=== PATIENT | female | born 1935 | race Caucasian/White ===

== ENCOUNTER 2017-05-02 09:51 | Outpatient (CLI) | payer MEDICARE ==
--- NOTE | 2017-05-02 15:35 | ULT ---
RENAL ULTRASOUND: HISTORY: Renal failure. FINDINGS: Real-time imaging of the right and left kidneys was performed. The right kidney measures 8.3 and the left kidney 9.7 cm in size. There is a 1.6 cm right renal cyst present. No signs of solid mass or obstruction. Mild cortical thinning is seen bilaterally. The bladder region appears unremarkable. IMPRESSION: A 1.6 cm right renal cyst. Mild cortical thinning of both kidneys without signs of obstruction or so lid mass. POS: AALIYAH
== END 2017-05-02 09:52 | disposition home or self-care (01) ==
LOC: ULT 09:51
PROVIDERS: ATTEND Internal Medicine Nephrology
DX: N18.3 Chronic kidney disease, stage 3 (moderate) (principal); N28.1 Cyst of kidney, acquired; N28.89 Other specified disorders of kidney and ureter
CPT/HCPCS: 76770

== ENCOUNTER 2018-05-08 09:30 | Outpatient (CLI) | payer MEDICARE ==
--- NOTE | 2018-05-08 10:37 | CT ---
CHEST CT WITH CONTRAST: HISTORY: Mass. COMPARISON: None. FINDINGS: There is no mediastinal mass, lymphadenopathy, or hematoma. Heart size is within normal limits. The re are coronary artery calcifications. No significant pericardial fluid. The thoracic and upper abd ominal aorta have a normal caliber. Minimal atherosclerotic change. Extrarenal pelvis is noted on the right. There is symmetric enhancement of the visualized renal cassandra ex. The visualized solid organs are unremarkable. Hypoattenuation of the liver is felt to be due to hepatic steatosis. There is a nonspecific periportal lymph node, measuring 1.8 x 1.5 cm. There is a calcified granuloma in the left lung apex. A second calcified granuloma is noted in the l eft upper lobe. Both these nodules measure approximately 6 mm. There are no suspicious nodules in t he left upper lobe or left lower lobe. An ill defined opacity in the right upper lobe, measuring 1 x 1.2 cm. No additional opacities or masses in the right lung. Patchy interstitial opacities through out the lung parenchyma are presumed to be due to chronic change. Trachea and central bronchi are pa tent. No significant pleural fluid or evidence of pneumothorax. Note is made of a small hiatal hernia with a significant amount of mesenteric fat extending through t he defect. IMPRESSION: 1. Calcified granulomas in the left upper lobe. 2. Ill defined opacity in the right upper lobe. The opacity may represent a focal area of infiltrat e. A malignant process cannot be completely excluded. Short-term follow-up imaging is recommended. 3. Small hiatal hernia with a significant amount of mesenteric fat extending through the defect. 4. Nonspecific periportal lymph node. POS: AALIYAH
== END 2018-05-08 09:31 | disposition home or self-care (01) ==
LOC: BICCT 09:30
PROVIDERS: ATTEND Family Medicine
DX: R91.8 Other nonspecific abnormal finding of lung field (principal); J84.10 Pulmonary fibrosis, unspecified; K44.9 Diaphragmatic hernia without obstruction or gangrene
CPT/HCPCS: 71260

== ENCOUNTER 2019-02-12 10:22 | Outpatient (CLI) | payer MEDICARE, MEDICAID ==
[~2019-02-12 10:22] MED LIST: Iopamidol 370 76% 100 ML VIAL ONE
--- NOTE | 2019-02-12 13:56 | CT ---
CT CHEST WITH CONTRAST: 02/12/19 INDICATION: Follow-up pulmonary nodule. Comparison made to chest CT of 05/08/18. FINDINGS: There is hazy ground glass opacities seen bilaterally. There is mild vascular engorgement and this ma y represent mild edema. No confluent consolidation. The oblong shaped nodular density in the right perihilar region located in right upper lobe is again seen. This has a similar appearance to 05/08/18 exam without evidence of significant interval change. The linear stranding in the left upper lobe with areas of nodular calcification appears stable. Mild atelectatic change in the posterior right lower lobe. Mediastinum unremarkable. The sliding diaphragmatic hernia again noted. IMPRESSION: 1. [place] shaped nodular density in the right upper lobe perihilar region is again seen. This junior s not significantly changed from 05/08/18. This measures approximately k9 to 10 mm in the coronal denis ne. Recommend continued follow-up with repeat noncontrast CT chest in six months. 2. There is cardiomegaly, mild vascular engorgement. Diffuse ground glass opacity bilaterally ma y represent mild edema. 3. Stranding and calcification in the left upper lobe are stable. Diaphragmatic hernia again not ed as described previously. Mild atelectasis in the posterior right lung base is seen. POS: [facility]
== END 2019-02-12 10:23 | disposition home or self-care (01) ==
LOC: CT 10:22
PROVIDERS: ATTEND Family Medicine
DX: R91.8 Other nonspecific abnormal finding of lung field (principal); I51.7 Cardiomegaly; K44.9 Diaphragmatic hernia without obstruction or gangrene; J98.11 Atelectasis
CPT/HCPCS: 71260; 82565; Q9967

== ENCOUNTER 2020-05-11 23:21 | Inpatient (IN) | payer MEDICARE, MEDICAID ==
[~2020-05-11 23:21] MED LIST changes: -Iopamidol 370 76% 100 ML VIAL ONE; +Iopamidol-370 76% 500 ML 1 ML ONE
[2020-05-11] MEDS ORDERED: Ondansetron PF 4 MG/2 ML Vial ONE (23:56)
[2020-05-11] MEDS ORDERED: Morphine 4 MG/ML VIAL ONE (23:56)
[2020-05-12 00:02] LABS: Mean Corpuscular HGB CONC 30.4 g/dL (32.0-36.0); Mean Corpuscular Hemoglobin 22.6 pg (27.0-31.0); Mean Corpuscular Volume 74.1 fL (78.0-98.0); Mean Platelet Volume 7.2 fL (7.4-10.4); Platelet Count 392 thou/uL (130-400); RBC Distribution Width 15.1 % (11.5-14.5); Red Blood Cell (RBC) Count 3.56 mill/uL (4.20-5.40); White Blood Cell (WBC) Count 15.7 thou/uL (4.8-10.8)
[2020-05-12 00:14] LABS: ALT (SGPT) 16 U/L (8-55); AST (SGOT) 40 U/L (5-34); Albumin 3.5 g/dL (3.4-4.8); Alkaline Phosphatase 96 U/L (40-110); Anion Gap 16 mmol/L (10-20); BUN (Urea Nitrogen) 25 mg/dL (9.8-20.1); Bilirubin, Total 0.2 mg/dL (0.2-1.2); Calc. Creatinine Clearance 0 mL/min (70-130); Calcium 9.1 mg/dL (7.8-10.44); Carbon Dioxide 22 mmol/L (23-31); Chloride 101 mmol/L (98-107); Estimated GFR-MDRD 41; Globulin 3.6 g/dL (2.4-3.5); Glucose 116 mg/dL (83-110); Lipase 10 U/L (8-78); Potassium 5.2 mmol/L (3.5-5.1); Protein, Total 7.1 g/dL (6.0-8.3); Sodium 134 mmol/L (136-145)
[2020-05-12 00:20] LABS: #Basophils 0.1 thou/uL (0.0-0.2); #Eosinphils 1.1 thou/uL (0.0-0.7); #Monocytes 1.1 thou/uL (0.11-0.59); #Neutrophils 8.4 thou/uL (1.40-6.50); %Basophils 0.8 % (0.0-1.0); %Eosinophils 7.1 % (0.0-10.0); %Lymphocytes 31.8 % (21.0-51.0); %Neutrophils 53.3 % (42.0-75.0); Hypochromia SLIGHT = 6-15 cells (100X) (0-5/hpf); MDiff Complete? YES; Microcytosis SLIGHT = 6-15 cells (100X) (0-5/hpf)
[2020-05-12 00:53] LABS: Bacteria/HPF 4+ HPF (None Seen); Bilirubin Negative (Negative); Blood, Urine 1+ (Negative); Clarity Turbid (Clear); Glucose, Urine (Dipstick) Normal (Negative); Ketone, Urine Negative (Negative); Leukocyte 500 Leu/uL (Negative); Nitrite Negative (Negative); Protein, Urine (Dipstick) Negative (Neg-Trace); Specific Gravity, Urine 1.006 (1.002-1.036); Squamous Epithelial 0-3 HPF (0-3); Urobilinogen Normal mg/dL (Less than 2); WBC/HPF Greater than 50 HPF (0-3); pH, Urine 5.5 (5.0-9.0)
[2020-05-12] MEDS ORDERED: Calcium Carbonate 500 MG ChewTAB PO PRN (01:40)
[2020-05-12] MEDS ORDERED: Acetaminophen 650 MG Suppository PR PRN (01:40)
[2020-05-12] MEDS ORDERED: Ondansetron PF 4 MG/2 ML Vial IVP PRN (01:40)
[2020-05-12] MEDS ORDERED: Ondansetron ODT 4 MG TAB PO PRN (01:40)
[2020-05-12] MEDS ORDERED: HYDROcodone/Acetaminophen 5/325 mg Tablet PO PRN (01:40)
--- NOTE | 2020-05-12 01:45 | PDOC.HHP ---
Hospitalist HPI - History of Present Illness slur speech / confusion History of Present Illness: Case of an 84-year-old female with a past medical history of hypertension hyperlipidemia, ckd, dementia and insulin-dependent diabetes presenting from [facility] due to slur speech and altered mental state. history was obtain from daughter who was in room. apparently patient was on her usual state of health until today when daughter called her mother at the [facility]-way. she states patient was confused and not making any sense for which she called the [facility] to go and evaluated the patient. patient was found confused and according to [facility]-way personal patient was having slur speech was confused and combative for which she was brought to hospital for evaluation. here slur speech had improved but patient continued to be confuse. at ed patient was diagnosed with sepsis secondary to uti and hospitalist was called for further evaluation and management. Hospitalist ROS - Review of Systems ROS unobtainable: due to mental status All other systems reviewed; all pertinent +/- noted in HPI/Subj Hospitalist History - Past Surgical History Other Surgical History: carpel tunnel - Family History Family History: reports: no pertinent history - Social History Smoking Status: Never smoker Alcohol: reports: None Drugs: reports: none Living Situation: [facility] - Exam General Appearance: NAD, ill appearing Eye: PERRL, anicteric sclera ENT: normocephalic atraumatic, no oropharyngeal lesions, moist mucosa Neck: supple, symmetric, no JVD, no thyromegaly Heart: RRR, no murmur, no gallops, no rubs Respiratory: CTAB, no wheezes, no rales, no ronchi Gastrointestinal: soft, non-distended, normal bowel sounds, tender to palpation Gastrointestinal - other findings: supra pubic Extremities: no cyanosis, no clubbing, no edema Skin: normal turgor, no lesions, no rashes Neurological: cranial nerve grossly intact, no weakness, no focal deficits, no new deficit Musculoskeletal: normal tone, no muscle wasting Psychiatric: not oriented Hospitalist Results - Labs Result Diagrams: 05/11/20 23:36 05/11/20 23:36 Lab results: WBC 15.7 thou/uL (4.8-10.8) H 05/11/20 23:36 Hgb 8.0 g/dL (12.0-16.0) L 05/11/20 23:36 Hct 26.4 % (36.0-47.0) L 05/11/20 23:36 MCV 74.1 fL (78.0-98.0) L 05/11/20 23:36 Plt Count 392 thou/uL (130-400) 05/11/20 23:36 Neutrophils % 53.3 % (42.0-75.0) 05/11/20 23:36 Sodium 134 mmol/L (136-145) L 05/11/20 23:36 Potassium 5.2 mmol/L (3.5-5.1) H 05/11/20 23:36 Chloride 101 mmol/L (98-107) 05/11/20 23:36 Carbon Dioxide 22 mmol/L (23-31) L 05/11/20 23:36 BUN 25 mg/dL (9.8-20.1) H 05/11/20 23:36 Creatinine 1.24 mg/dL (0.6-1.1) H 05/11/20 23:36 Glucose 116 mg/dL (83-110) H 05/11/20 23:36 Lactic Acid 1.6 mmol/L (0.5-2.2) 05/11/20 23:36 Calcium 9.1 mg/dL (7.8-10.44) 05/11/20 23:36 Total Bilirubin 0.2 mg/dL (0.2-1.2) 05/11/20 23:36 AST 40 U/L (5-34) H 05/11/20 23:36 ALT 16 U/L (8-55) 05/11/20 23:36 Alkaline Phosphatase 96 U/L (40-110) 05/11/20 23:36 Troponin I Less than 0.010 ng/mL (< 0.028) 05/11/20 23:36 Serum Total Protein 7.1 g/dL (6.0-8.3) 05/11/20 23:36 Albumin 3.5 g/dL (3.4-4.8) 05/11/20 23:36 Lipase 10 U/L (8-78) 05/11/20 23:36 Urine Ketones Negative mg/dL (Negative) 05/12/20 00:04 Urine Blood 1+ (Negative) A 05/12/20 00:04 Urine Nitrite Negative (Negative) 05/12/20 00:04 Ur Leukocyte Esterase 500 Car/uL (Negative) A 05/12/20 00:04 Urine RBC 4-6 HPF (0-3) A 05/12/20 00:04 Urine WBC Greater than 50 HPF (0-3) A 05/12/20 00:04 Ur Squamous Epith Cells 0-3 HPF (0-3) 05/12/20 00:04 Urine Bacteria 4+ HPF (None Seen) A 05/12/20 00:04 Hospitalist H&P A/P - Problem (1) Sepsis Code(s): A41.9 - SEPSIS, UNSPECIFIED ORGANISM Status: Acute (2) UTI (urinary tract infection) Status: Acute (3) TIA (transient ischemic attack) Code(s): G45.9 - TRANSIENT CEREBRAL ISCHEMIC ATTACK, UNSPECIFIED Status: Acute (4) Diabetes Code(s): E11.9 - TYPE 2 DIABETES MELLITUS WITHOUT COMPLICATIONS Status: Acute (5) HLD (hyperlipidemia) Code(s): E78.5 - HYPERLIPIDEMIA, UNSPECIFIED Status: Acute (6) HTN (hypertension) Code(s): I10 - ESSENTIAL (PRIMARY) HYPERTENSION Status: Acute (7) CKD (chronic kidney disease) stage 3, GFR 30-59 ml/min Code(s): N18.30 - CHRONIC KIDNEY DISEASE, STAGE 3 UNSPECIFIED Status: Acute - Plan Plan: 84y/o female with the stated pmhx who presents with slur speech and confusion noted to be in sepsis secondary to uti sepsis secondary to uti - elevated wbc + confusion with u/a consistent with uti - started on levaquin - f/u blood and urine cultures - ivfs - hx of recurrent utis tia - episode of slur speech now resolved - head ct negative - asa + statin for secondary prevention - 2echo - carotid doppler - head mri - neurology consult - permissive hypertension dm -acc+ss hld - on statin htn - holding medication for permissive htn and in the setting of sepsis
[2020-05-12] MEDS ORDERED: Dextrose 5% in Water 1,000 ML IV PRN (02:16)
[2020-05-12] MEDS ORDERED: Dextrose 50% Abboject 50 ML SYRINGE SLOW IVP PRN (02:16)
[2020-05-12] MEDS: Sodium Chloride 0.9% 1,000 ML IV SCH (04:45)
--- NOTE | 2020-05-12 07:59 | CT ---
PRELIMINARY REPORT/[facility]/EMERGENCY AFTER HOURS PROCEDURE EXAM: CT Abdomen and Pelvis with Intravenous Contrast CLINICAL HISTORY: LLQ & LUQ PAIN TECHNIQUE: Axial computed tomography images of the abdomen and pelvis with intravenous contrast. Coronal and sa gittal reformatted images are provided. CONTRAST: With; 60ML ISOVUE 370 intravenous. No oral contrast. COMPARISON: None provided. FINDINGS: LUNG BASES: No basilar airspace consolidation or pleural effusion. LIVER: Unremarkable. GALLBLADDER AND BILE DUCTS: Unremarkable. No calcified stone. No ductal dilation. PANCREAS: Unremarkable. SPLEEN: Unremarkable. ADRENAL GLANDS: Unremarkable. KIDNEYS, URETERS, AND BLADDER: Bilateral renal cortical thinning. No hydronephrosis or nephrolithiasis. No ureteral or bladder calc dawson. STOMACH AND BOWEL: No obstruction. No wall thickening. No CT evidence of colitis or acute diverticulitis. APPENDIX: The appendix is not identified and may be surgically absent. No inflammatory changes around the cecu m. PERITONEUM: No free fluid. No free air. No abscess. LYMPH NODES: Prominent portal caval lymph nodes. No pathologic adenopathy. REPRODUCTIVE: Status post hysterectomy. No pelvic mass or free fluid. VASCULATURE: No aortic aneurysm. BONES: Fixation hardware within the right proximal femur. No evidence of hardware complication. There are multilevel degenerative changes of the lumbar spine. No acute fractures or worrisome osseous lesions. ABDOMINAL WALL AND SOFT TISSUES: Unremarkable. IMPRESSION: No acute intra-abdominal or pelvic abnormality. ELECTRONICALLY SIGNED BY: Avery Prater M.D. May 12, 2020 1:16:36 AM SENIOR PHYSICIAN This report is intended for review by the ordering physician only, in accordance of law. If you recei ve this report in error, please call [facility] at [phone]. FINAL REPORT Emergent after hours CT abdomen and pelvis with IV contrast HISTORY: Left upper quadrant and left lower quadrant abdominal pain. COMPARISON: CT thorax on 02/12/2019 IMPRESSION: 1. Dilatation of the common duct which measures 13 mm. There is no significant intrahepatic biliary d uctal dilatation present. Etiology for dilatation of the common duct is uncertain based on this exam. 2. No acute findings are seen in the abdomen and pelvis. 3. Colonic diverticulosis. 4. Vascular calcifications in the abdominal aorta and iliac arteries. 5. Incidental note is made of a circumaortic left renal vein. 6. Diaphragmatic hernia primarily composed of fat is again seen and stable compared to prior CT thora x. 7. Mild bibasilar groundglass densities which may be related to volume loss. 8. Postoperative changes right hip. 9. Suggestion of mild renal cortical thinning. 10. Mild dilatation of the common duct was not mentioned on preliminary report. This is a nonspecific finding, but MRCP versus ERCP may be helpful for further evaluation. This finding was discussed with Babatunde nurse in the hospital floor on 05/12/2020 at 1515 hours. Transcribed Date/Time: 05/12/2020 8:47 AM
--- NOTE | 2020-05-12 08:55 | CT ---
PRELIMINARY REPORT/[facility]/EMERGENCY AFTER HOURS PROCEDURE: EXAM: CT Head Without Intravenous Contrast. CLINICAL HISTORY: Patient is an 84-year-old female with a past medical history of hypertension hyperl ipidemia and insulin-dependent diabetes presenting from group home for decreased alertness which be [place] roughly around 1900 hrs. Per EMS the patient was briefly slurring her speech however now has retu rned to baseline and smells of turbid urine. TECHNIQUE: Axial computed tomography images of the head/brain without intravenous contrast. COMPARISON: None provided. FINDINGS: BRAIN: No acute intraparenchymal hemorrhage. No mass lesion. No CT evidence for acute territorial infarct. N o midline shift or extra-axial collection. Encephalomalacia involving the right occipital lobe. Patchy white matter hypodensities in the centru m semiovale and marcano radiata consistent with chronic microvascular ischemic changes. There is diff use cerebral atrophy. VENTRICLES: No hydrocephalus. ORBITS: The orbits are unremarkable. SINUSES AND MASTOIDS: The paranasal sinuses and mastoid air cells are clear. SOFT TISSUES: No significant facial or scalp soft tissue swelling evident. No radiopaque foreign body is seen. BONES: No acute skull fracture. IMPRESSION: 1. No acute intracranial abnormality. 2. Old right occipital infarct. 3. Chronic microvascular ischemic changes. ELECTRONICALLY SIGNED BY: Avery Prater M.D. May 12, 2020 1:05:34 AM CARPET LAYER HELPER This report is intended for review by the ordering physician only, in accordance of law. If you recei ve this report in error, please call [facility] at [phone]. FINAL REPORT CT BRAIN WITHOUT CONTRAST: I agree with the preliminary report given by Dr. Avery Prater of [facility]. POS: OFF
[2020-05-12 09:11] LABS: SARS-CoV-2 MS2 Positive; SARS-CoV-2 N Gene Negative; SARS-CoV-2 S Gene Negative; SARS-CoV-2 by NAA Not Detected (NotDetected); SARS-CoV-2 orf1ab Negative
--- NOTE | 2020-05-12 09:19 | ULT ---
ULTRASOUND DOPPLER DUPLEX CAROTID: DATE: 05/12/2020 HISTORY: 84 year old female with TIA TECHNIQUE: Grayscale, color-flow, and spectral analysis, of major arteries of neck. FINDINGS: RIGHT: Atherosclerotic plaque:Mild to moderate at common carotid and internal carotid arteries. Peak systolic and end diastolic velocities: CCA:80 cm/s, 15 cm/s ICA:80 cm/s, 15 cm/s ICA/CCA ratio:1.0 Vertebral artery flow:Antegrade LEFT: Atherosclerotic plaque:Mild to moderate at common carotid and internal carotid arteries. Peak systolic and end diastolic velocities: CCA:110 cm/s, 20 cm/s ICA:85 cm/s, 20 cm/s ICA/CCA ratio:0.8 Vertebral artery flow:Antegrade IMPRESSION: 1) mild to moderate atherosclerosis of bilateral carotid arteries. 2) no evidence of hemodynamically significant stenosis by velocities.
[2020-05-12 09:42] LABS: Hemoglobin 7.9 g/dL (12.0-16.0); Mean Corpuscular HGB CONC 30.3 g/dL (32.0-36.0); Mean Corpuscular Hemoglobin 22.5 pg (27.0-31.0); Mean Corpuscular Volume 74.3 fL (78.0-98.0); Mean Platelet Volume 7.1 fL (7.4-10.4); Platelet Count 413 thou/uL (130-400); RBC Distribution Width 15.1 % (11.5-14.5); Red Blood Cell (RBC) Count 3.51 mill/uL (4.20-5.40); White Blood Cell (WBC) Count 12.1 thou/uL (4.8-10.8)
[2020-05-12 10:00] LABS: ALT (SGPT) 15 U/L (8-55); AST (SGOT) 39 U/L (5-34); Albumin 3.5 g/dL (3.4-4.8); Alkaline Phosphatase 83 U/L (40-110); Anion Gap 14 mmol/L (10-20); BUN (Urea Nitrogen) 22 mg/dL (9.8-20.1); Bilirubin, Total 0.3 mg/dL (0.2-1.2); Calc. Creatinine Clearance 46 mL/min (70-130); Calcium 9.3 mg/dL (7.8-10.44); Carbon Dioxide 27 mmol/L (23-31); Cardiac Risk 4.6 (Less than 4.5); Chloride 103 mmol/L (98-107); Cholesterol 190 mg/dl (< 200 Desired); Estimated GFR-MDRD 41; Globulin 3.5 g/dL (2.4-3.5); Glucose 91 mg/dL (83-110); HDL Cholesterol 41 mg/dL (>60 Neg Risk); LDL Cholesterol, Calculated 82 mg/dL; Potassium 5.3 mmol/L (3.5-5.1); Sodium 139 mmol/L (136-145); Triglycerides 336 mg/dL (Less than 150)
[2020-05-12 10:02] LABS: Band 4 % (5-11); Eosinophils 7 % (0-10); Hypochromia SLIGHT = 6-15 cells (100X) (0-5/hpf); Lymphocytes 24 % (21-51); MDiff Complete? YES; Microcytosis SLIGHT = 6-15 cells (100X) (0-5/hpf); Monocytes 6 % (0-10); Neutrophil 57 % (42-75); Platelet Morphology Comment Appears Increased; Polychromasia SLIGHT = 2-3 cells (100X) (0-2/hpf)
--- NOTE | 2020-05-12 10:28 | MRI ---
MRI BRAIN WITHOUT CONTRAST: Date: 05/12/2020 INDICATION: TIA. Correlation made to CT head 05/12/2020. FINDINGS: Moderate cortical atrophy. Moderate to severe chronic ischemic white matter change. Evidence of an ol d right occipital lobe infarct as noted on CT. No evidence of restricted diffusion. Linear height sig nal on diffusion-weighted sequences in the right occipital lobe is consistent with T2 shine-through a s noted on the ADC map. No evidence of acute infarct. No evidence of hemorrhage. Intracranial internal carotid arteries, basilar artery, and cerebral arteries demonstrate expected fl ow-voids. IMPRESSION: 1. Cortical Atrophy and moderate chronic ischemic white matter changes. Evidence of old right occipi skyla lobe infarct. 2. No evidence of acute infarct. POS: AH
--- NOTE | 2020-05-12 12:53 | CON ---
NEUROLOGY CONSULTATION DATE OF CONSULTATION: 05/12/2020 REASON FOR CONSULTATION: Altered mental status/confusion/slurred speech. HISTORY OF PRESENT ILLNESS: Ms. Breana Colvin is an 84-year-old female with medical history significant for hypertension, hyperlipidemia, chronic kidney disease, dementia, and insulin-dependent diabetes mellitus, [facility] because of an episode of slurred speech with altered mental status. History is obtained from the daughter who is at bedside. Per daughter, she was in her usual health until yesterday when her daughter called her mother at the [facility] and she seems to be confused and keeps on repeating the same sentence. The daughter later called the nursing station, and they decided to bring her to the emergency room for further evaluation. In the emergency room, she was found to be confused with slurred speech, which subsequently improved. In the emergency room, she was diagnosed with sepsis secondary to UTI and admitted for further evaluation. She also has an episode, during which she was slumped on the side of the bed and there was a concern about seizures. Neurology was consulted for further evaluation. There is no prior history of seizures or head injury. REVIEW OF SYSTEMS: Unobtainable due to the patient's mental status. PAST SURGICAL HISTORY: Carpal tunnel surgery. PAST MEDICAL HISTORY: Hypertension, hyperlipidemia, chronic kidney disease, dementia, insulin-dependent diabetes mellitus. FAMILY HISTORY: No significant family history. SOCIAL HISTORY: The patient lives in a [facility]. Denies smoking, alcohol, or illegal drug use. ALLERGIES: Penicillin PHYSICAL EXAMINATION: 124/71 66 18 General Appearance: NAD, ill appearing Eye: PERRL, anicteric sclera ENT: normocephalic atraumatic, no oropharyngeal lesions, moist mucosa Neck: supple, symmetric, no JVD, no thyromegaly Heart: RRR, no murmur, no gallops, no rubs Respiratory: CTAB, no wheezes, no rales, no ronchi Gastrointestinal: soft, non-distended, normal bowel sounds, tender to palpation Gastrointestinal - other findings: supra pubic Extremities: no cyanosis, no clubbing, no edema Skin: normal turgor, no lesions, no rashes Neurological: Mental status; the patient is alert and oriented to person, place, and time. Recent and remote memory, clear. Speech is clear. Motor; muscle tone and bulk are normal. Strength 5/5 bilaterally. Sensory intact. Cerebellar, finger-nose testing intact. Cranial nerves 2 through 12 intact. Gait deferred due to the patient's safety reason. LABORATORY AND DIAGNOSTIC DATA: Data reviewed. I reviewed the labs, which are significant for anemia, hemoglobin 8 and hematocrit 26.4 and leukocytosis with white count of 15.7. Hyponatremia with a sodium 134, hyperkalemia of 5.2, BUN 25, creatinine 1.24, and glucose is slightly high 116. WBC 15.7 thou/uL (4.8-10.8) H 05/11/20 23:36 Hgb 8.0 g/dL (12.0-16.0) L 05/11/20 23:36 Hct 26.4 % (36.0-47.0) L 05/11/20 23:36 MCV 74.1 fL (78.0-98.0) L 05/11/20 23:36 Plt Count 392 thou/uL (130-400) 05/11/20 23:36 Neutrophils % 53.3 % (42.0-75.0) 05/11/20 23:36 Sodium 134 mmol/L (136-145) L 05/11/20 23:36 Potassium 5.2 mmol/L (3.5-5.1) H 05/11/20 23:36 Chloride 101 mmol/L (98-107) 05/11/20 23:36 Carbon Dioxide 22 mmol/L (23-31) L 05/11/20 23:36 BUN 25 mg/dL (9.8-20.1) H 05/11/20 23:36 Creatinine 1.24 mg/dL (0.6-1.1) H 05/11/20 23:36 Glucose 116 mg/dL (83-110) H 05/11/20 23:36 Lactic Acid 1.6 mmol/L (0.5-2.2) 05/11/20 23:36 Calcium 9.1 mg/dL (7.8-10.44) 05/11/20 23:36 Total Bilirubin 0.2 mg/dL (0.2-1.2) 05/11/20 23:36 AST 40 U/L (5-34) H 05/11/20 23:36 ALT 16 U/L (8-55) 05/11/20 23:36 Alkaline Phosphatase 96 U/L (40-110) 05/11/20 23:36 Troponin I Less than 0.010 ng/mL (< 0.028) 05/11/20 23:36 Serum Total Protein 7.1 g/dL (6.0-8.3) 05/11/20 23:36 Albumin 3.5 g/dL (3.4-4.8) 05/11/20 23:36 Lipase 10 U/L (8-78) 05/11/20 23:36 Urine Ketones Negative mg/dL (Negative) 05/12/20 00:04 Urine Blood 1+ (Negative) A 05/12/20 00:04 Urine Nitrite Negative (Negative) 05/12/20 00:04 Ur Leukocyte Esterase 500 Car/uL (Negative) A 05/12/20 00:04 Urine RBC 4-6 HPF (0-3) A 05/12/20 00:04 Urine WBC Greater than 50 HPF (0-3) A 05/12/20 00:04 Ur Squamous Epith Cells 0-3 HPF (0-3) 05/12/20 00:04 Urine Bacteria 4+ HPF (None Seen) A 05/12/20 00:04 ASSESSMENT AND PLAN: (1) Sepsis Code(s): A41.9 - SEPSIS, UNSPECIFIED ORGANISM Status: Acute (2) UTI (urinary tract infection) Status: Acute (3) TIA (transient ischemic attack) Code(s): G45.9 - TRANSIENT CEREBRAL ISCHEMIC ATTACK, UNSPECIFIED Status: Acute (4) Diabetes Code(s): E11.9 - TYPE 2 DIABETES MELLITUS WITHOUT COMPLICATIONS Status: Acute (5) HLD (hyperlipidemia) Code(s): E78.5 - HYPERLIPIDEMIA, UNSPECIFIED Status: Acute (6) HTN (hypertension) Code(s): I10 - ESSENTIAL (PRIMARY) HYPERTENSION Status: Acute (7) CKD (chronic kidney disease) stage 3, GFR 30-59 ml/min Code(s): N18.30 - CHRONIC KIDNEY DISEASE, STAGE 3 UNSPECIFIED Status: Acute Ms. Breana Colvin is an 84-year-old female, presented with altered mental status, slurred speech in the setting of metabolic encephalopathy and urinary tract infection. There is also concern about transient ischemic attack and seizure-like episode. MRI of the brain reviewed, which was negative for acute intracranial pathology and did show old stroke and chronic small vessel disease. Carotid Doppler did not reveal hemodynamically significant stenosis. 2D echo pending. Continue aspirin and high-intensity statin for secondary stroke prevention. Neuro checks every 4 hours. Strict control of blood pressure and blood glucose. EEG to rule outcortical irritability. Continue telemetry. Continue home medications. Continue medical management per primary team, PT/OT/speech. We will continue to follow. Plan discussed in detail with the patient and the daughter at bedside. We will continue to follow. Thank you for the consult. Job ID: [id number] MARY
[2020-05-12] MEDS: Aspirin 325 mg Enteric Coated Tablet PO SCH (15:49)
[2020-05-12] MEDS: Enoxaparin Sodium 40 MG/0.4 ML SYRINGE SC SCH (15:49)
--- NOTE | 2020-05-12 16:12 | PDOC.EEG ---
Neurology EEG Report - Report Report: This EEG was performed using 24 channel [employer] video digital EEG machine with 24 disc electrodes. This was an extended 2 hours 7 minutes of EEG recording. Digital analysis of the EEG was done for Rickey and seizure detection which revealed no abnormalities. Background: The posterior background rhythm was not observed. Photic stimulation: No response seen with photic stimulation. Hyperventilation: Not performed. Sleep: No stage change was observed. EEG diagnosis: Intermittent irregular theta activity seen throughout the recording. Absence of posterior background rhythm. Clinical interpretation: This EEG is consistent with mild to moderate generalized nonspecific cerebral dysfunction.
[2020-05-12] MEDS: Acetaminophen 325 MG TAB PO PRN (18:18)
[2020-05-12] MEDS: Atorvastatin Calcium 40 MG TAB PO SCH (19:53)
[2020-05-13] MEDS: Sodium Chloride 0.9% 1,000 ML IV SCH ×2 (02:08→21:10)
--- NOTE | 2020-05-13 07:10 | CON ---
DATE OF CONSULTATION: 05/12/2020 REASON FOR CONSULTATION: Abnormal CAT scan showing dilation of bile duct. HISTORY OF PRESENT ILLNESS: Breana Colvin is a very pleasant 84-year-old female, who is a penitentiary resident. The patient was seen in the room along with the patient's daughter, Sharad. The patient was living in [place], [place] before and her daughter moved her to [facility] about 3-1/2 years ago. The patient does see Ms. Suellen Drake, who is her primary care provider. Apparently, Dr. Gresham also is her primary care provider. The patient was in the penitentiary. The patient was brought to the ER from the penitentiary after the patient was found to have altered mental status and confusion. The patient _was admitted because of the above reason. There is also mention of some slurred speech. Since admission, the patient had a CAT scan of the brain and also EEG. The EEG showed diffuse cerebral function slowing. Since admission, her mental status slowly getting better and better. The patient appears awake, alert, and communicative. She knows her name. She knows the hospital. She knows her daughter. She also tells me she has three daughters. However, the patient unable to tell me the date or the month or the year. Her daughter tells me she has mild memory impairment, this is her baseline. However, when she was brought to the ER four days ago, she was very confused and disoriented and had some slurring of speech. Since admission, the patient was seen by a neurologist. She also has had abdominal and renal sonogram because of UTI. The renal sonogram showed no pathology. The patient had abdominal CAT scan done today for some abdominal tenderness on the physical exam. She does not have any abdominal pain, but on physical exam shows tender over the colon. Abdominal CAT scan done does shows dilation of CBD to 1.3 cm. There is no other abnormal findings seen. There is no pancreatic mass or liver mass seen. The patient had no prior history of any abdominal pain, nausea, vomiting. Although she has dilation of CBD, liver profile is normal. At the present time, she did not have any chest discomfort, palpitation, or any GI symptoms. ALLERGIES: PENICILLIN. SOCIAL HISTORY: The patient is a former smoker. Drinks alcohol occasionally. MEDICAL ILLNESS: 1. Obesity. 2. Hypertension. 3. Diabetes mellitus. 4. Hyperlipidemia. 5. Chronic kidney disease. 6. Dementia. SURGERIES: 1. Has had a left carpal tunnel surgery. 2. Has had fracture of the right femur with a plate placement. 3. Bladder suspension and she had some reaction to the mesh and has had repeat surgery to take it out. 4. History of fall with fracture of the left big toe in the past. 5. History of what appears to be rhabdomyolysis and kidney failure four years ago initially living in [place]. FAMILY HISTORY: No family history of any cancer, stroke, heart disease. MEDICATIONS: List reviewed. REVIEW OF SYSTEMS: CONSTITUTIONAL: No history of any fever or chills. No weight loss. EYES: No impaired vision. EARS: No hearing loss. THROAT: No sore throat. No dysphagia. NECK: No pain or stiffness. LUNGS: No chronic coughing. No hemoptysis. No dyspnea. CARDIOVASCULAR SYSTEM: No chest pain. No palpitation. No dyspnea, orthopnea, PND. GI: No abdominal pain, nausea, vomiting. No hematochezia or melena. : History of UTI. However, does not have any frequent dysuria or frequency of urination. MUSCULOSKELETAL: Unremarkable. NEURO: Unremarkable. ENDOCRINE: Unremarkable. PHYSICAL EXAMINATION: GENERAL: She is obese, appears very comfortable. She is awake, alert, and communicative. She is not a complete good historian. She does answer some of the questions, but some of the questions she is not able to answer. VITAL SIGNS: She is afebrile. Her pulse is 86, blood pressure is 130/86. HEENT: Conjunctivae are clear. NECK: Supple. No adenitis or thyromegaly. CARDIOVASCULAR SYSTEM: Normal heart sounds. LUNGS: Clear to auscultation. ABDOMEN: Soft. Abdomen is tender over the right upper quadrant. She also minimally tender in the epigastric area. There is no rebound or guarding. No organomegaly. No masses. Her bowel sounds are normal. EXTREMITIES: Reveal no edema. LABORATORY DATA: CBC; WBC 12,100, hemoglobin 7.9 drawn today, hematocrit 26.1, MCV 74.3. Platelet count 413,000, polymorphs 57, bands 4, lymphocytes 24. Serum chemistries; sodium 139, potassium 5.3, chloride 103, bicarb 27, BUN is 22, creatinine is 1.25, glucose is 159 today, calcium 9.3, bilirubin 0.2. AST 39, ALT 15, alkaline phosphatase is 83, albumin is 3.5. Abdominal sonogram shows no pancreatic mass or any liver masses. Does show dilation of CBD to 1.3 cm. Renal ultrasound showed no pathology. CLINICAL IMPRESSION: An 84-year-old female with: 1. Altered mental status and slurring of speech, seem to have resolved. Mental status slowly coming back towards normal. However, her daughter tells me she is still not back to her baseline status. She is awake and alert, communicative. She is tender over the right upper quadrant. She has no abdominal pain, no nausea or vomiting. Her liver function tests are normal. A stat CT scan showed dilation of the CBD. 2. Hypertension. 3. Diabetes mellitus. 4. Hyperlipidemia. 5. Chronic kidney disease. 6. Mild dementia. RECOMMENDATIONS: 1. Obtain abdominal sonogram. 2. Also consider MRCP. 3. She is anemic and the etiology is unclear. The admitting hematology shows anemia to begin with and hemoglobin 8 and hematocrit 26.4. Yet, her etiology is unclear. No history of hematochezia or melena. No prior history of anemia. We would recommend obtaining a stool for occult blood. 4. Follow up H and H. 5. Transfuse p.r.n. Dr. Tylor Lauren on-call for me tomorrow. I will go ahead and order the abdominal sonogram, MRCP for Sunday. Also, we would obtain stool for Hemoccult testing. Job ID: [id number] [facility]
[2020-05-13] MEDS: Aspirin 325 mg Enteric Coated Tablet PO SCH (09:02)
[2020-05-13] MEDS: Enoxaparin Sodium 40 MG/0.4 ML SYRINGE SC SCH (09:02)
[2020-05-13 09:19] LABS: #Basophils 0.1 thou/uL (0.0-0.2); #Eosinphils 0.8 thou/uL (0.0-0.7); #Lymphocytes 2.6 thou/uL (1.20-3.40); #Monocytes 0.7 thou/uL (0.11-0.59); #Neutrophils 7.1 thou/uL (1.40-6.50); %Eosinophils 7.1 % (0.0-10.0); %Lymphocytes 23.1 % (21.0-51.0); %Monocytes 6.4 % (0.0-10.0); %Neutrophils 62.4 % (42.0-75.0); Hemoglobin 8.1 g/dL (12.0-16.0); Mean Corpuscular HGB CONC 31.6 g/dL (32.0-36.0); Mean Corpuscular Hemoglobin 23.8 pg (27.0-31.0); Mean Corpuscular Volume 75.3 fL (78.0-98.0); Mean Platelet Volume 7.2 fL (7.4-10.4); Platelet Count 361 thou/uL (130-400); RBC Distribution Width 15.1 % (11.5-14.5); Red Blood Cell (RBC) Count 3.39 mill/uL (4.20-5.40); White Blood Cell (WBC) Count 11.4 thou/uL (4.8-10.8)
--- NOTE | 2020-05-13 09:31 | ULT ---
RIGHT UPPER QUADRANT ABDOMINAL ULTRASOUND: COMPARISON: CT abdomen/pelvis 05/12/2020. HISTORY: Enlargement of the common bile duct on CT. TECHNIQUE: Multiplanar, cohen scale, and color Doppler images were obtained in a right upper quadrant abdominal u ltrasound. FINDINGS: The liver is increased in echogenicity which may represent mild fatty infiltration. The gallbladder is normal without stones, sludge, gallbladder wall thickening, or pericholecystic fluid. The common bile duct is enlarged measuring 7 mm. This may be normal for a patient of this age. The visualized portions of the pancreas are unremarkable. There is mild right-sided hydronephrosis v ersus an extrarenal pelvis. There is a lobulation of the superior pole of the right kidney measuring approximately 3.2 cm in size as measured by the technologist. No mass is seen on CT in this locatio n. The right kidney measures 9.6 cm in length. IMPRESSION: 1. Enlargement of the common bile duct to 7 mm. This may be normal for a patient of this age. No g allstones or abnormality in the common bile duct is seen. 2. Right-sided hydronephrosis versus extrarenal pelvis. POS: EAA
[2020-05-13 09:37] LABS: ALT (SGPT) 14 U/L (8-55); AST (SGOT) 41 U/L (5-34); Albumin 3.4 g/dL (3.4-4.8); Alkaline Phosphatase 82 U/L (40-110); Anion Gap 15 mmol/L (10-20); BUN (Urea Nitrogen) 22 mg/dL (9.8-20.1); Bilirubin, Total 0.3 mg/dL (0.2-1.2); Calc. Creatinine Clearance 43 mL/min (70-130); Carbon Dioxide 22 mmol/L (23-31); Chloride 102 mmol/L (98-107); Estimated GFR-MDRD 38; Globulin 3.5 g/dL (2.4-3.5); Glucose 257 mg/dL (83-110); Potassium 5.3 mmol/L (3.5-5.1); Protein, Total 6.9 g/dL (6.0-8.3); Sodium 134 mmol/L (136-145)
--- NOTE | 2020-05-13 11:18 | PRG ---
DATE OF SERVICE: 05/13/2020 SUBJECTIVE: I am meeting Ms. Colvin for the first time today. She is awake and alert, able to answer questions appropriately about symptoms, but not really about her history. She denies any abdominal pain unless there is palpation. On palpation, there is greater discomfort to the right upper quadrant than the left upper quadrant. She has been tolerating her diet okay with no nausea or vomiting. No diarrhea. She denies any melena or hematochezia, but says she really does not look at her stool. She denies any prior history of anemia. Abdominal ultrasound from earlier today shows no evidence of bile duct dilation with CBD only 7 mm, which is discordant from the CT findings on admission. OBJECTIVE: VITAL SIGNS: Temperature 98.5, pulse 88, blood pressure 118/78, 100% oxygen saturation on room air. GENERAL: Pale, lying in bed comfortably, in no distress. HEART: Regular rate and rhythm. LUNGS: Clear to auscultation bilaterally. ABDOMEN: Nondistended. Bowel sounds present. Soft. She is tender to palpation in the right upper quadrant and to a lesser degree in the left upper quadrant. There is no tenderness to palpation in the lower abdomen. No guarding or rebound, tenderness. EXTREMITIES: No peripheral edema. LABORATORY STUDIES: Hemoglobin stable at 8.1, MCV low at 75.3. WBC 11.4, platelets 361. Sodium 134, potassium 5.3, BUN 22, creatinine 1.34, glucose 257, total bilirubin 0.3, alkaline phosphatase 82, AST only 41, ALT only 14, albumin 3.4. Lipase was normal at 10. Urinalysis shows greater than 50 wbc's. COVID PCR negative. Urine cultures growing presumptive E. coli. Blood cultures are negative. IMAGING STUDIES: Abdominal ultrasound from earlier today demonstrates a common bile duct measuring only 7 mm, which may be normal for a patient of her age. No gallstones or no other common bile duct abnormality. There is right-sided hydronephrosis versus extrarenal pelvis. ASSESSMENT/PLAN: 1. Mild common bile duct dilation, with discordance on the initial CT suggesting 1.3 cm in size, and now abdominal ultrasound showing only 7 mm in size. Again, noting that her LFTs and lipase are normal. I really do not see any evidence of biliary obstruction. I do agree with Dr. Ortega that MRCP would be more sensitive for detecting significant pathology. This is planned for tomorrow. We will follow up that result. 2. Upper abdominal pain. This is greater on the right upper quadrant than the left upper quadrant, but really only tender to palpation, not resulting in any nausea or vomiting. 3. Microcytic anemia, stable. The chronicity of her anemia is unclear. This is a microcytic anemia. Hemoglobin was normal back in 2017. It is stable here. We discussed the differential would include iron deficiency, which I do suspect if so, I need to consider occult GI bleeding lesion. It does not appear she has ever undergone EGD or colonoscopy. This would be reasonable to consider this admission. We will check iron studies, B12 and folic acid levels tomorrow. We will have her on a clear liquid diet tomorrow. We will follow up with the patient regarding MRCP findings and discuss possible bowel preparation tomorrow evening for EGD/colonoscopy on Sunday. Job ID: [id number]
--- NOTE | 2020-05-13 13:50 | PDOC.NEUPN ---
- Subjective Encounter Date: 05/13/20 Subjective: Altered mental status has not been improved since the last 24 hours. - Objective Vital Signs & Weight: Vital Signs (12 hours) Temp 05/13/20 11:28 98.6 F 05/13/20 07:35 98.5 F 05/13/20 04:30 98.3 F Weight Weight 187 lb 9.6 oz Most Recent Monitor Data Heart Rate from ECG 85 NIBP 118/78 NIBP BP-Mean 91 Respiration from ECG 17 SpO2 99 I&O: 05/12/20 05/13/20 05/14/20 06:59 06:59 06:59 Intake Total 1070 Output Total 600 Balance 470 Result Diagrams: 05/13/20 08:49 05/13/20 08:49 Additional Labs: Accuchecks 05/13/20 05/13/20 05/12/20 10:56 05:30 19:51 POC Glucose 161 H 146 H 189 H 05/12/20 16:53 POC Glucose 159 H Radiology Reviewed by me: Yes EKG Reviewed by me: Yes ROS - Review of Systems Constitutional: denies: fever, chills, sweats, weakness, malaise, other Eyes: denies: pain, vision change, conjunctivae inflammation, eyelid inflammation, redness, other ENT: denies: ear pain, ear discharge, nose pain, nose discharge, nose congestion, mouth pain, mouth swelling, throat pain, throat swelling, other Respiratory: denies: cough, dry, shortness of breath, hemoptysis, SOB with excertion, pleuritic pain, sputum, wheezing, other Musculoskeletal: denies: neck pain, shoulder pain, arm pain, back pain, hand pain, leg pain, foot pain, other Skin: denies: rash, lesions, odalis, bruising, other Neurological: reports: change in speech. denies: weakness, numbness, i ncoordination, confusion, seizures, other All Systems: All other systems reviewed; all pertinent +/- noted in HPI/Subj - Medication Medications: Active Medications Generic Name Dose Route Start Last Admin Trade Name Freq PRN Reason Stop Dose Admin Acetaminophen 650 mg 05/12/20 01:40 05/12/20 18:18 Acetaminophen 325 Mg Tab PO 650 mg Q4H PRN Administration Headache/Fever/Mild Pain (1-3) Aspirin 325 mg 05/12/20 09:00 05/13/20 09:02 Aspirin 325 Mg Enteric Coated Tablet PO 325 mg DAILY PATITO Administration Atorvastatin Calcium 40 mg 05/12/20 21:00 05/12/20 19:53 Atorvastatin Calcium 40 Mg Tab PO 40 mg HS PATITO Administration Enoxaparin Sodium 40 mg 05/12/20 09:00 05/13/20 09:02 Enoxaparin Sodium 40 Mg/0.4 Ml Syringe SC 40 mg 0900 PATITO Administration Sodium Chloride 1,000 mls @ 30 mls/hr 05/12/20 02:15 05/13/20 02:08 Normal Saline 0.9% IV 1,000 mls .Q24H PATITO Administration Levofloxacin 750 mg/ Device 150 mls @ 100 mls/hr 05/13/20 02:00 05/13/20 02:08 IVPB 150 mls Q24HR PATITO Administration - Exam General Appearance: awake alert Eye: PERRL ENT: normocephalic atraumatic Neck: supple Respiratory: CTAB Cardiovascular: RRR Gastrointestinal: soft Extremities: no cyanosis Skin: normal turgor Neurological: CN's grossly intact, normal sensation to touch, no weakness, no focal deficits, no new deficit Musculoskeletal: normal tone, normal strength, no muscle wasting PSYCH: normal affect, normal behavior, A&O x 3, oriented to person, oriented to place, oriented to time Results - Labs Result Diagrams: 05/13/20 08:49 05/13/20 08:49 Lab results: WBC 11.4 thou/uL (4.8-10.8) H 05/13/20 08:49 Hgb 8.1 g/dL (12.0-16.0) L 05/13/20 08:49 Hct 25.5 % (36.0-47.0) L 05/13/20 08:49 MCV 75.3 fL (78.0-98.0) L 05/13/20 08:49 Plt Count 361 thou/uL (130-400) 05/13/20 08:49 Neutrophils % 62.4 % (42.0-75.0) 05/13/20 08:49 Band Neuts % (Manual) 4 % (5-11) L 05/12/20 09:20 Sodium 134 mmol/L (136-145) L 05/13/20 08:49 Potassium 5.3 mmol/L (3.5-5.1) H 05/13/20 08:49 Chloride 102 mmol/L (98-107) 05/13/20 08:49 Carbon Dioxide 22 mmol/L (23-31) L 05/13/20 08:49 BUN 22 mg/dL (9.8-20.1) H 05/13/20 08:49 Creatinine 1.34 mg/dL (0.6-1.1) H 05/13/20 08:49 Glucose 257 mg/dL (83-110) H 05/13/20 08:49 Lactic Acid 1.6 mmol/L (0.5-2.2) 05/11/20 23:36 Calcium 9.0 mg/dL (7.8-10.44) 05/13/20 08:49 Total Bilirubin 0.3 mg/dL (0.2-1.2) 05/13/20 08:49 AST 41 U/L (5-34) H 05/13/20 08:49 ALT 14 U/L (8-55) 05/13/20 08:49 Alkaline Phosphatase 82 U/L (40-110) 05/13/20 08:49 Troponin I Less than 0.010 ng/mL (< 0.028) 05/11/20 23:36 Serum Total Protein 6.9 g/dL (6.0-8.3) 05/13/20 08:49 Albumin 3.4 g/dL (3.4-4.8) 05/13/20 08:49 Lipase 10 U/L (8-78) 05/11/20 23:36 Urine Ketones Negative mg/dL (Negative) 05/12/20 00:04 Urine Blood 1+ (Negative) A 05/12/20 00:04 Urine Nitrite Negative (Negative) 05/12/20 00:04 Ur Leukocyte Esterase 500 Car/uL (Negative) A 05/12/20 00:04 Urine RBC 4-6 HPF (0-3) A 05/12/20 00:04 Urine WBC Greater than 50 HPF (0-3) A 05/12/20 00:04 Ur Squamous Epith Cells 0-3 HPF (0-3) 05/12/20 00:04 Urine Bacteria 4+ HPF (None Seen) A 05/12/20 00:04 - Radiology Interpretation MRI - head Additional Comment: MRI of the brain reviewed which was negative for acute intracranial pathology. 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 PN A/P (1) AMS (altered mental status) Code(s): R41.82 - ALTERED MENTAL STATUS, UNSPECIFIED Status: Acute (2) HLD (hyperlipidemia) Code(s): E78.5 - HYPERLIPIDEMIA, UNSPECIFIED Status: Acute (3) HTN (hypertension) Code(s): I10 - ESSENTIAL (PRIMARY) HYPERTENSION Status: Acute (4) Sepsis Code(s): A41.9 - SEPSIS, UNSPECIFIED ORGANISM Status: Acute (5) TIA (transient ischemic attack) Code(s): G45.9 - TRANSIENT CEREBRAL ISCHEMIC ATTACK, UNSPECIFIED Status: Acute (6) UTI (urinary tract infection) Status: Acute - Plan Daily Plan: plan discussed w/ family (Daughter at bedside), PT/OT, speech therapy, DVT proph w/SCDs Ms. Colvin is a 84-year-old female presented with acute onset altered mental status. Altered mental status seems to be multifactorial secondary to metabolic and infectious etiology. However, TIA could not be completely ruled out since there was an episode of slurred speech which resolved on its own. MRI of the brain reviewed which was negative for acute intracranial pathology. Carotid Doppler did not show hemodynamically significant stenosis. 2D echocardiogram completed. Normal left ventricular ejection fraction with no PFO or thrombus. Neurochecks every 4 hours. Strict control of blood pressure and blood glucose. Continue home medications. Continue aspirin and high intensity statin for secondary stroke prevention. PT/OT/speech. Continue medical management per primary team. Plan discussed in detail with the daughter and also with the patient.
--- NOTE | 2020-05-13 19:11 | PDOC.HOSPP ---
- Subjective Encounter Date: 05/13/20 Encounter Time: 12:00 Subjective: Patient seen for follow-up regarding sepsis. She reports feeling better today. - Objective Vital Signs & Weight: Vital Signs (12 hours) Temp Pulse Resp BP Pulse Ox 05/13/20 18:31 98.8 F 91 20 151/61 H 100 05/13/20 15:24 99.4 F 05/13/20 11:28 98.6 F 05/13/20 07:35 98.5 F Weight Weight 187 lb 9.6 oz Most Recent Monitor Data Heart Rate from ECG 80 NIBP 118/78 NIBP BP-Mean 91 Respiration from ECG 20 SpO2 97 I&O: 05/12/20 05/13/20 05/14/20 06:59 06:59 06:59 Intake Total 1070 Output Total 600 300 Balance 470 -300 Result Diagrams: 05/13/20 08:49 05/13/20 08:49 Additional Labs: Accuchecks 05/13/20 05/13/20 05/13/20 16:40 10:56 05:30 POC Glucose 200 H 161 H 146 H 05/12/20 19:51 POC Glucose 189 H I reviewed patient's labs and MAR Hospitalist ROS - Review of Systems Cardiovascular: denies: chest pain, palpitations, orthopnea, paroxysmal noc. dyspnea, edema, light headedness Gastrointestinal: denies: nausea, vomiting, abdominal pain, diarrhea, constipation, melena, hematochezia - Medication Medications: Active Medications Generic Name Dose Route Start Last Admin Trade Name Freq PRN Reason Stop Dose Admin Acetaminophen 650 mg 05/12/20 01:40 05/12/20 18:18 Acetaminophen 325 Mg Tab PO 650 mg Q4H PRN Administration Headache/Fever/Mild Pain (1-3) Aspirin 325 mg 05/12/20 09:00 05/13/20 09:02 Aspirin 325 Mg Enteric Coated Tablet PO 325 mg DAILY PATITO Administration Atorvastatin Calcium 40 mg 05/12/20 21:00 05/12/20 19:53 Atorvastatin Calcium 40 Mg Tab PO 40 mg HS PATITO Administration Enoxaparin Sodium 40 mg 05/12/20 09:00 05/13/20 09:02 Enoxaparin Sodium 40 Mg/0.4 Ml Syringe SC 40 mg 0900 PATITO Administration Sodium Chloride 1,000 mls @ 30 mls/hr 05/12/20 02:15 05/13/20 02:08 Normal Saline 0.9% IV 1,000 mls .Q24H PATITO Administration Levofloxacin 750 mg/ Device 150 mls @ 100 mls/hr 05/13/20 02:00 05/13/20 02:08 IVPB 150 mls Q24HR PATITO Administration Ondansetron HCl 4 mg 05/12/20 01:40 05/13/20 18:01 Ondansetron Pf 4 Mg/2 Ml Vial IVP 4 mg Q6H PRN Administration Nausea/Vomiting - Exam General Appearance: awake alert Eye: anicteric sclera ENT: moist mucosa Neck: supple Heart: RRR Respiratory: CTAB Gastrointestinal: soft, no guarding, no rigidity Gastrointestinal - other findings: Mild RUQ tenderness Skin: no rashes Psychiatric: normal affect, normal behavior Hosp A/P - Plan - Problem (1) UTI (urinary tract infection) Status: Acute (2) HLD (hyperlipidemia) Code(s): E78.5 - HYPERLIPIDEMIA, UNSPECIFIED Status: Chronic (3) Diabetes Code(s): E11.9 - TYPE 2 DIABETES MELLITUS WITHOUT COMPLICATIONS Status: Chronic (4) HTN (hypertension) Code(s): I10 - ESSENTIAL (PRIMARY) HYPERTENSION Status: Chronic (5) CKD (chronic kidney disease) stage 3, GFR 30-59 ml/min Code(s): N18.30 - CHRONIC KIDNEY DISEASE, STAGE 3 UNSPECIFIED Status: Chronic (6) acute metabolic encephalopathy Status: Resolved (7) Sepsis Code(s): A41.9 - SEPSIS, UNSPECIFIED ORGANISM Status: Resolved (8) TIA (transient ischemic attack) Code(s): G45.9 - TRANSIENT CEREBRAL ISCHEMIC ATTACK, UNSPECIFIED Status: Suspected (9) biliary duct dilatation Status: Suspected - Plan Plan: Continue IV levofloxacin, follow-up blood and urine cultures. Conflicting information regarding biliary duct caliber from CT scan and ultrasound, await MRI of abdomen. Patient is clinically improving. Patient's daughter was updated by the bedside. Transfer out of [facility] to the floor.
[2020-05-13] MEDS: Atorvastatin Calcium 40 MG TAB PO SCH (21:10)
[2020-05-14 05:20] LABS: #Basophils 0.1 thou/uL (0.0-0.2); #Eosinphils 0.7 thou/uL (0.0-0.7); #Lymphocytes 3.8 thou/uL (1.20-3.40); #Neutrophils 9.3 thou/uL (1.40-6.50); %Basophils 0.7 % (0.0-1.0); %Eosinophils 4.7 % (0.0-10.0); %Lymphocytes 25.4 % (21.0-51.0); %Monocytes 6.8 % (0.0-10.0); %Neutrophils 62.4 % (42.0-75.0); Hemoglobin 7.5 g/dL (12.0-16.0); Mean Corpuscular HGB CONC 31.7 g/dL (32.0-36.0); Mean Corpuscular Hemoglobin 23.4 pg (27.0-31.0); Mean Corpuscular Volume 73.7 fL (78.0-98.0); Platelet Count 382 thou/uL (130-400); Red Blood Cell (RBC) Count 3.19 mill/uL (4.20-5.40); White Blood Cell (WBC) Count 14.9 thou/uL (4.8-10.8)
[2020-05-14 05:41] LABS: ALT (SGPT) 15 U/L (8-55); AST (SGOT) 35 U/L (5-34); Albumin 3.4 g/dL (3.4-4.8); Alkaline Phosphatase 78 U/L (40-110); Anion Gap 11 mmol/L (10-20); BUN (Urea Nitrogen) 19 mg/dL (9.8-20.1); Bilirubin, Total 0.3 mg/dL (0.2-1.2); Calc. Creatinine Clearance 43 mL/min (70-130); Calcium 8.8 mg/dL (7.8-10.44); Carbon Dioxide 28 mmol/L (23-31); Chloride 102 mmol/L (98-107); Estimated GFR-MDRD 38; Globulin 3.5 g/dL (2.4-3.5); Glucose 149 mg/dL (83-110); Iron 26 ug/dL (50-170); Iron Binding Capacity, Total 370 mcg/dL (265-497); Potassium 3.9 mmol/L (3.5-5.1); Protein, Total 6.9 g/dL (6.0-8.3); Sodium 137 mmol/L (136-145)
[2020-05-14 06:05] LABS: Ferritin 17.87 ng/mL (10-291)
[2020-05-14] MEDS: Aspirin 325 mg Enteric Coated Tablet PO SCH (09:25)
[2020-05-14] MEDS: Enoxaparin Sodium 40 MG/0.4 ML SYRINGE SC SCH (09:25)
--- NOTE | 2020-05-14 13:53 | MRI ---
MRI OF ABDOMEN WITHOUT IV CONTRAST AND MRC AND MRCP: 05/14/20 HISTORY: Dilated common bile duct. FINDINGS: Correlation is made with the CT scan of 05/12/20 and gallbladder ultrasound of 05/13/20. No intrahepatic biliary ductal dilatation is seen. The common bile duct is prominent but tapers to 7 mm distally. No filling defects are seen to suggest choledocholithiasis. The gallbladder is normal w ithout evidence of cholelithiasis. A tiny right renal cyst is present. The spleen, pancreas, adrenal glands and left kidney appear normal. No free fluid or lymphadenopathy seen in the abdomen. The aorta is of normal caliber. The bone marrow signal is normal. There is a fat containing diaphragmatic mirtha ia. IMPRESSION: 1. No significant abnormal biliary ductal dilatation. 2. No evidence of cholelithiasis or choledocholithiasis. POS: MZA
--- NOTE | 2020-05-14 15:55 | PRG ---
DATE OF SERVICE: 05/14/2020 This is a GI inpatient daily progress note. SUBJECTIVE: Ms. Colvin is feeling well today. No acute complaints. She is not having any abdominal pain. She had her MRI this morning, which shows clear nondilated bile ducts. OBJECTIVE: VITAL SIGNS: Temperature 98.3, pulse 70, blood pressure 142/64, 96% oxygen saturation on room air. GENERAL: No acute distress, lying in bed comfortably. HEART: Regular rate and rhythm. LUNGS: Clear to auscultation bilaterally. ABDOMEN: Soft, nontender to palpation. EXTREMITIES: No peripheral edema. LABORATORY STUDIES: WBC is 14.9, hemoglobin 7.5, MCV 73.7, platelets 382. Sodium 137, potassium 3.9, BUN 19, creatinine 1.32, glucose 193, calcium 8.8. Ferritin is 17.87, iron is low at 26, TIBC is 370. Total bilirubin 0.3, alkaline phosphatase 78, AST 35, ALT 15. Vitamin B12 is normal at 664, but folic acid is low at 4.9. ASSESSMENT AND PLAN: 1. Concern for biliary dilation, now with MRCP demonstrating no biliary abnormality, common bile duct measuring 6 mm in size. 2. Microcytic anemia, with folic acid deficiency as well as mild iron deficiency. I again had a discussion with the patient and her daughter regarding her anemia. Occult gastrointestinal bleeding lesion should be excluded. She has never undergone esophagogastroduodenoscopy or colonoscopy. We are going to plan for esophagogastroduodenoscopy/colonoscopy tomorrow after bowel preparation this evening. Following the exam, the patient would benefit from being on oral iron supplementation as well as folic acid supplementation. 3. Further recommendations following esophagogastroduodenoscopy/colonoscopy tomorrow. Please call anytime with questions or concerns. Job ID: [id number]
--- NOTE | 2020-05-14 16:13 | PDOC.HOSPP ---
- Subjective Encounter Date: 05/14/20 Encounter Time: 16:12 Subjective: Patient seen for follow-up regarding urinary tract infection. Patient denies chest pain or shortness of breath. - Objective Vital Signs & Weight: Vital Signs (12 hours) Temp Pulse Resp BP Pulse Ox 05/14/20 15:30 98.3 F 75 16 145/67 H 96 05/14/20 12:20 98.3 F 70 16 142/64 H 96 05/14/20 07:15 98.2 F 75 14 128/68 94 L Weight Weight 187 lb 9.6 oz Most Recent Monitor Data Heart Rate from ECG 80 NIBP 118/78 NIBP BP-Mean 91 Respiration from ECG 20 SpO2 97 I&O: 05/13/20 05/14/20 05/15/20 06:59 06:59 06:59 Intake Total 1070 300 Output Total 600 300 650 Balance 470 -300 -350 Result Diagrams: 05/14/20 04:47 05/14/20 04:47 Additional Labs: Accuchecks 05/14/20 05/14/20 05/13/20 10:34 05:06 16:40 POC Glucose 193 H 146 H 200 H Labs and MAR reviewed by me EKG Reviewed by me: Yes (Normal sinus rhythm on telemetry) Hospitalist ROS - Review of Systems Cardiovascular: denies: chest pain, palpitations, orthopnea, paroxysmal noc. dyspnea, edema, light headedness Gastrointestinal: denies: nausea, vomiting, abdominal pain, diarrhea, constipation, melena, hematochezia - Medication Medications: Active Medications Generic Name Dose Route Start Last Admin Trade Name Freq PRN Reason Stop Dose Admin Acetaminophen 650 mg 05/12/20 01:40 05/12/20 18:18 Acetaminophen 325 Mg Tab PO 650 mg Q4H PRN Administration Headache/Fever/Mild Pain (1-3) Aspirin 325 mg 05/12/20 09:00 05/14/20 09:25 Aspirin 325 Mg Enteric Coated Tablet PO 325 mg DAILY PATITO Administration Atorvastatin Calcium 40 mg 05/12/20 21:00 05/13/20 21:10 Atorvastatin Calcium 40 Mg Tab PO 40 mg HS PATITO Administration Enoxaparin Sodium 40 mg 05/12/20 09:00 05/14/20 09:25 Enoxaparin Sodium 40 Mg/0.4 Ml Syringe SC 40 mg 0900 PATITO Administration Sodium Chloride 1,000 mls @ 30 mls/hr 05/12/20 02:15 05/13/20 21:10 Normal Saline 0.9% IV 1,000 mls .Q24H PATITO Administration Levofloxacin 750 mg/ Device 150 mls @ 100 mls/hr 05/13/20 02:00 05/14/20 02:38 IVPB 150 mls Q24HR PATITO Administration Ondansetron HCl 4 mg 05/12/20 01:40 05/13/20 18:01 Ondansetron Pf 4 Mg/2 Ml Vial IVP 4 mg Q6H PRN Administration Nausea/Vomiting - Exam General Appearance: awake alert Eye: anicteric sclera ENT: normocephalic atraumatic Neck: supple Heart: RRR Respiratory: CTAB Gastrointestinal: soft, non-tender Extremities: no cyanosis Skin: no rashes Psychiatric: normal affect, normal behavior Hosp A/P - Plan - Problem (1) UTI (urinary tract infection) Status: Acute (2) HLD (hyperlipidemia) Code(s): E78.5 - HYPERLIPIDEMIA, UNSPECIFIED Status: Chronic (3) Diabetes Code(s): E11.9 - TYPE 2 DIABETES MELLITUS WITHOUT COMPLICATIONS Status: Chronic (4) HTN (hypertension) Code(s): I10 - ESSENTIAL (PRIMARY) HYPERTENSION Status: Chronic (5) CKD (chronic kidney disease) stage 3, GFR 30-59 ml/min Code(s): N18.30 - CHRONIC KIDNEY DISEASE, STAGE 3 UNSPECIFIED Status: Chronic (6) acute metabolic encephalopathy Status: Resolved (7) Sepsis Code(s): A41.9 - SEPSIS, UNSPECIFIED ORGANISM Status: Resolved (8) TIA (transient ischemic attack) Code(s): G45.9 - TRANSIENT CEREBRAL ISCHEMIC ATTACK, UNSPECIFIED Status: Suspected (9) biliary duct dilatation Status: Ruled out - Plan Plan: UTI secondary to E. coli, switch to ciprofloxacin. MRI abdomen did not show any biliary duct dilatation. Patient is clinically improving. Patient is awaiting endoscopic studies.
[2020-05-14] MEDS ORDERED: GoLYTELY 4,000 ml Bottle PO SCH (17:00)
[2020-05-14] MEDS ORDERED: Ciprofloxacin 500 MG TAB PO SCH (20:00)
[2020-05-14] MEDS: Atorvastatin Calcium 40 MG TAB PO SCH (21:29)
[2020-05-14] MEDS: Sodium Chloride 0.9% 1,000 ML IV SCH (21:31)
[2020-05-15 05:37] LABS: #Basophils 0.1 thou/uL (0.0-0.2); #Eosinphils 0.7 thou/uL (0.0-0.7); #Lymphocytes 2.9 thou/uL (1.20-3.40); #Monocytes 0.8 thou/uL (0.11-0.59); #Neutrophils 7.2 thou/uL (1.40-6.50); %Basophils 0.9 % (0.0-1.0); %Eosinophils 5.8 % (0.0-10.0); %Lymphocytes 24.7 % (21.0-51.0); %Monocytes 7.2 % (0.0-10.0); %Neutrophils 61.5 % (42.0-75.0); Hemoglobin 7.3 g/dL (12.0-16.0); Mean Corpuscular HGB CONC 31.1 g/dL (32.0-36.0); Mean Corpuscular Hemoglobin 22.7 pg (27.0-31.0); Mean Platelet Volume 7.2 fL (7.4-10.4); Platelet Count 377 thou/uL (130-400); Red Blood Cell (RBC) Count 3.21 mill/uL (4.20-5.40); White Blood Cell (WBC) Count 11.8 thou/uL (4.8-10.8)
[2020-05-15 05:56] LABS: ALT (SGPT) 16 U/L (8-55); AST (SGOT) 55 U/L (5-34); Albumin 3.4 g/dL (3.4-4.8); Alkaline Phosphatase 68 U/L (40-110); Anion Gap 14 mmol/L (10-20); BUN (Urea Nitrogen) 13 mg/dL (9.8-20.1); Bilirubin, Total 0.3 mg/dL (0.2-1.2); Calc. Creatinine Clearance 52 mL/min (70-130); Calcium 8.7 mg/dL (7.8-10.44); Carbon Dioxide 26 mmol/L (23-31); Chloride 104 mmol/L (98-107); Estimated GFR-MDRD 47; Globulin 3.3 g/dL (2.4-3.5); Glucose 171 mg/dL (83-110); Potassium 3.7 mmol/L (3.5-5.1); Protein, Total 6.7 g/dL (6.0-8.3); Sodium 140 mmol/L (136-145)
[2020-05-15] MEDS: Acetaminophen 325 MG TAB PO PRN ×3 (10:29→20:40)
[2020-05-15] MEDS: Enoxaparin Sodium 40 MG/0.4 ML SYRINGE SC SCH (11:32)
[2020-05-15] MEDS: Aspirin 325 mg Enteric Coated Tablet PO SCH (11:32)
--- NOTE | 2020-05-15 12:10 | PDOC.NEUPN ---
- Subjective Encounter Date: 05/15/20 Subjective: Altered mental status resolved and patient is oriented. Daughter at bedside - Objective Vital Signs & Weight: Vital Signs (12 hours) Temp Pulse Resp BP Pulse Ox 05/15/20 11:02 97.6 F 65 20 135/70 65 L 05/15/20 07:24 97.9 F 67 16 150/72 H 97 05/15/20 04:00 98.0 F 78 16 142/71 H 97 Weight Weight 187 lb 9.6 oz Most Recent Monitor Data Heart Rate from ECG 80 NIBP 118/78 NIBP BP-Mean 91 Respiration from ECG 20 SpO2 97 I&O: 05/14/20 05/15/20 05/16/20 06:59 06:59 06:59 Intake Total 600 Output Total 300 900 Balance -300 -300 Result Diagrams: 05/15/20 05:15 05/15/20 05:15 Additional Labs: Accuchecks 05/15/20 05/15/20 05/14/20 11:03 05:14 21:13 POC Glucose 161 H 161 H 166 H Radiology Reviewed by me: Yes EKG Reviewed by me: Yes ROS - Review of Systems Eyes: denies: pain, vision change, conjunctivae inflammation, eyelid inflammation, redness, other ENT: denies: ear pain, ear discharge, nose pain, nose discharge, nose congestion, mouth pain, mouth swelling, throat pain, throat swelling, other Respiratory: denies: cough, dry, shortness of breath, hemoptysis, SOB with excertion, pleuritic pain, sputum, wheezing, other Gastrointestinal: denies: nausea, vomiting, abdominal pain, diarrhea, constipation, melena, hematochezia, other Genitourinary: reports: dysuria. denies: frequency, incontinence, hematuria, retention, other Musculoskeletal: denies: neck pain, shoulder pain, arm pain, back pain, hand pain, leg pain, foot pain, other Neurological: denies: weakness, numbness, incoordination, change in speech, confusion, seizures, other All Systems: All other systems reviewed; all pertinent +/- noted in HPI/Subj - Medication Medications: Active Medications Generic Name Dose Route Start Last Admin Trade Name Freq PRN Reason Stop Dose Admin Acetaminophen 650 mg 05/12/20 01:40 05/15/20 10:31 Acetaminophen 325 Mg Tab PO 650 mg Q4H PRN Administration Headache/Fever/Mild Pain (1-3) Aspirin 325 mg 05/12/20 09:00 05/15/20 11:32 Aspirin 325 Mg Enteric Coated Tablet PO Not Given DAILY PATITO Atorvastatin Calcium 40 mg 05/12/20 21:00 05/14/20 21:29 Atorvastatin Calcium 40 Mg Tab PO 40 mg HS PATITO Administration Enoxaparin Sodium 40 mg 05/12/20 09:00 05/15/20 11:32 Enoxaparin Sodium 40 Mg/0.4 Ml Syringe SC Not Given 0900 PATITO Sodium Chloride 1,000 mls @ 30 mls/hr 05/12/20 02:15 05/14/20 21:31 Normal Saline 0.9% IV 1,000 mls .Q24H PATITO Administration Ciprofloxacin/Dextrose 400 mg/ 200 mls @ 200 mls/hr 05/14/20 17:00 05/15/20 06:19 Device IVPB 200 mls 0500,1700 PATITO Administration - Exam General Appearance: awake alert Eye: PERRL ENT: normocephalic atraumatic Neck: supple Respiratory: CTAB Cardiovascular: RRR Gastrointestinal: soft Extremities: no cyanosis Skin: normal turgor Neurological: no new deficit Musculoskeletal: normal tone, normal strength, no muscle wasting PSYCH: normal affect, normal behavior, A&O x 3, oriented to person, oriented to place, oriented to time Results - Labs Result Diagrams: 05/15/20 05:15 05/15/20 05:15 Lab results: WBC 11.8 thou/uL (4.8-10.8) H 05/15/20 05:15 Hgb 7.3 g/dL (12.0-16.0) L 05/15/20 05:15 Hct 23.4 % (36.0-47.0) L 05/15/20 05:15 MCV 73.0 fL (78.0-98.0) L 05/15/20 05:15 Plt Count 377 thou/uL (130-400) 05/15/20 05:15 Neutrophils % 61.5 % (42.0-75.0) 05/15/20 05:15 Band Neuts % (Manual) 4 % (5-11) L 05/12/20 09:20 Sodium 140 mmol/L (136-145) 05/15/20 05:15 Potassium 3.7 mmol/L (3.5-5.1) 05/15/20 05:15 Chloride 104 mmol/L (98-107) 05/15/20 05:15 Carbon Dioxide 26 mmol/L (23-31) 05/15/20 05:15 BUN 13 mg/dL (9.8-20.1) 05/15/20 05:15 Creatinine 1.11 mg/dL (0.6-1.1) H 05/15/20 05:15 Glucose 171 mg/dL (83-110) H 05/15/20 05:15 Lactic Acid 1.6 mmol/L (0.5-2.2) 05/11/20 23:36 Calcium 8.7 mg/dL (7.8-10.44) 05/15/20 05:15 Total Bilirubin 0.3 mg/dL (0.2-1.2) 05/15/20 05:15 AST 55 U/L (5-34) H 05/15/20 05:15 ALT 16 U/L (8-55) 05/15/20 05:15 Alkaline Phosphatase 68 U/L (40-110) 05/15/20 05:15 Troponin I Less than 0.010 ng/mL (< 0.028) 05/11/20 23:36 Serum Total Protein 6.7 g/dL (6.0-8.3) 05/15/20 05:15 Albumin 3.4 g/dL (3.4-4.8) 05/15/20 05:15 Lipase 10 U/L (8-78) 05/11/20 23:36 Urine Ketones Negative mg/dL (Negative) 05/12/20 00:04 Urine Blood 1+ (Negative) A 05/12/20 00:04 Urine Nitrite Negative (Negative) 05/12/20 00:04 Ur Leukocyte Esterase 500 Car/uL (Negative) A 05/12/20 00:04 Urine RBC 4-6 HPF (0-3) A 05/12/20 00:04 Urine WBC Greater than 50 HPF (0-3) A 05/12/20 00:04 Ur Squamous Epith Cells 0-3 HPF (0-3) 05/12/20 00:04 Urine Bacteria 4+ HPF (None Seen) A 05/12/20 00:04 - Radiology Interpretation MRI - head Additional Comment: No acute intracranial pathology PN A/P (1) AMS (altered mental status) Code(s): R41.82 - ALTERED MENTAL STATUS, UNSPECIFIED Status: Acute (2) HLD (hyperlipidemia) Code(s): E78.5 - HYPERLIPIDEMIA, UNSPECIFIED Status: Acute (3) HTN (hypertension) Code(s): I10 - ESSENTIAL (PRIMARY) HYPERTENSION Status: Acute (4) Sepsis Code(s): A41.9 - SEPSIS, UNSPECIFIED ORGANISM Status: Acute (5) TIA (transient ischemic attack) Code(s): G45.9 - TRANSIENT CEREBRAL ISCHEMIC ATTACK, UNSPECIFIED Status: Acute (6) UTI (urinary tract infection) Status: Acute - Plan Daily Plan: continue antibiotics, PT/OT, speech therapy, DVT proph w/SCDs Ms. Colvin is a 84-year-old female presented with acute onset altered mental status. Altered mental status seems to be multifactorial secondary to metabolic and infectious etiology. However, TIA could not be completely ruled out since there was an episode of slurred speech which resolved on its own. Patient altered mental status is now resolved and she is being treated for UTI. MRI of the brain reviewed which was negative for acute intracranial pathology. Carotid Doppler did not show hemodynamically significant stenosis. 2D echocardiogram completed. Normal left ventricular ejection fraction with no PFO or thrombus. Neurochecks every 4 hours. Strict control of blood pressure and blood glucose. Continue home medications. Continue aspirin and high intensity statin for secondary stroke prevention. PT/OT/speech. Continue medical management per primary team. Plan discussed in detail with the daughter and also with the patient.
[2020-05-15] MEDS ORDERED: PROPOFOL 20 ML ONE (12:58)
[2020-05-15] MEDS ORDERED: Ketamine 50 MG/ML (10ML VIAL) ONE (12:58)
[2020-05-15] MEDS ORDERED: PROPOFOL 200 MG/20 ML VIAL ONE (13:22)
--- NOTE | 2020-05-15 14:20 | OP ---
DATE OF PROCEDURE: 05/15/2020 HUMAN RESOURCES GENERALIST SURGEON: None. PROCEDURES PERFORMED: 1. Esophagogastroduodenoscopy, diagnostic. 2. Colonoscopy, diagnostic. INDICATIONS: 1. Iron deficiency anemia. 2. Folic acid deficiency. 3. The patient has never undergone EGD or colonoscopy. There has been no overt gastrointestinal bleeding. MEDICATIONS: See Anesthesia record. FINDINGS: After discussion of the risks, benefits, and alternatives of the procedure, informed consent was obtained and witnessed. Pre-endoscopic cardiopulmonary examination was satisfactory. Time-out was performed before sedation was achieved. Sedation was achieved with Anesthesia assistance in the endoscopy unit. A Pentax adult upper endoscope was placed into the oropharynx and passed through the cricopharyngeus under direct visualization. The proximal and mid esophageal mucosa appeared normal. In the distal esophagus, there was some very mild nonerosive esophagitis. The endoscope was advanced into the stomach. Forward and retroflexed views of the entire gastric mucosa were obtained. The gastric fundus and body appeared normal. In the gastric antrum, really in the pre-pyloric area, there was a focal area of erythema and friability, but no erosions or ulceration. There was some mild oozing induced with endoscope passage beyond this area, but this quickly stopped. The endoscope was advanced through the pylorus and into the first and second portions of the duodenum, which appeared normal. The upper endoscope was completely withdrawn and the patient was repositioned. Digital rectal exam was performed, which was unremarkable. A Pentax adult colonoscope was inserted into the anus and passed forward to the cecum in the usual fashion. The cecal base was identified by the appendiceal orifice as well as the ileocecal valve. The terminal ileum was not intubated. The colonoscope was slowly withdrawn in a gradual and circumferential manner with careful examination of the entire colonic mucosa. The quality of the prep was good. There was no evidence of any old blood or active bleeding in the colon. There was no evidence of any polyp or bleeding lesion. There was diverticulosis throughout the left side of the colon. Retroflexion in the rectum showed no additional abnormalities. The colonoscope was completely withdrawn and the patient allowed to recover. The patient tolerated the procedure well. There were no immediate postprocedure complications. IMPRESSION: 1. Focal gastritis in the antrum, with friability, but no erosions or ulcerations. 2. Very mild distal esophagitis. 3. Otherwise, normal esophagogastroduodenoscopy. 4. Left-sided colonic diverticulosis. 5. Otherwise, normal colonoscopy to the terminal ileum. RECOMMENDATIONS: 1. Advance diet. 2. Oral iron and folic acid supplementation. 3. Daily proton pump inhibitor for 1 month. GI will sign off. Please call back with any questions or concerns. Job ID: [id number]
--- NOTE | 2020-05-15 15:39 | PDOC.HOSPP ---
- Subjective Encounter Date: 05/15/20 Encounter Time: 07:00 Subjective: Patient seen for follow-up regarding UTI. Denies chest pain or shortness of breath. Denies fevers or chills. - Objective Vital Signs & Weight: Vital Signs (12 hours) Temp Pulse Resp BP Pulse Ox 05/15/20 14:37 98.7 F 61 20 142/60 H 95 05/15/20 11:02 97.6 F 65 20 135/70 65 L 05/15/20 07:24 97.9 F 67 16 150/72 H 97 05/15/20 04:00 98.0 F 78 16 142/71 H 97 Weight Weight 187 lb 9.6 oz Most Recent Monitor Data Heart Rate from ECG 80 NIBP 118/78 NIBP BP-Mean 91 Respiration from ECG 20 SpO2 97 I&O: 05/14/20 05/15/20 05/16/20 06:59 06:59 06:59 Intake Total 600 Output Total 300 900 Balance -300 -300 Result Diagrams: 05/15/20 05:15 05/15/20 05:15 Additional Labs: Accuchecks 05/15/20 05/15/20 05/14/20 11:03 05:14 21:13 POC Glucose 161 H 161 H 166 H Labs and MAR reviewed by me EKG Reviewed by me: Yes (Telemetry shows normal sinus rhythm) Hospitalist ROS - Review of Systems Genitourinary: denies: dysuria, frequency, incontinence, hematuria, retention Skin: denies: rash, lesions, odalis, bruising - Medication Medications: Active Medications Generic Name Dose Route Start Last Admin Trade Name Irais PRN Reason Stop Dose Admin Acetaminophen 650 mg 05/12/20 01:40 05/15/20 10:31 Acetaminophen 325 Mg Tab PO 650 mg Q4H PRN Administration Headache/Fever/Mild Pain (1-3) Aspirin 325 mg 05/12/20 09:00 05/15/20 11:32 Aspirin 325 Mg Enteric Coated Tablet PO Not Given DAILY PATITO Atorvastatin Calcium 40 mg 05/12/20 21:00 05/14/20 21:29 Atorvastatin Calcium 40 Mg Tab PO 40 mg HS PATITO Administration Enoxaparin Sodium 40 mg 05/12/20 09:00 05/15/20 11:32 Enoxaparin Sodium 40 Mg/0.4 Ml Syringe SC Not Given 0900 [facility] Sodium Chloride 1,000 mls @ 30 mls/hr 05/12/20 02:15 05/14/20 21:31 Normal Saline 0.9% IV 1,000 mls .Q24H PATITO Administration Ciprofloxacin/Dextrose 400 mg/ 200 mls @ 200 mls/hr 05/14/20 17:00 05/15/20 06:19 Device IVPB 200 mls 0500,1700 PATITO Administration - Exam General Appearance: awake alert Eye: anicteric sclera ENT: normocephalic atraumatic Neck: supple Heart: RRR Respiratory: CTAB Gastrointestinal: soft, non-tender Skin: no rashes Psychiatric: normal affect, normal behavior Hosp A/P - Plan - Problem (1) UTI (urinary tract infection) Status: Acute (2) HLD (hyperlipidemia) Code(s): E78.5 - HYPERLIPIDEMIA, UNSPECIFIED Status: Chronic (3) Diabetes Code(s): E11.9 - TYPE 2 DIABETES MELLITUS WITHOUT COMPLICATIONS Status: Chronic (4) HTN (hypertension) Code(s): I10 - ESSENTIAL (PRIMARY) HYPERTENSION Status: Chronic (5) CKD (chronic kidney disease) stage 3, GFR 30-59 ml/min Code(s): N18.30 - CHRONIC KIDNEY DISEASE, STAGE 3 UNSPECIFIED Status: Chronic (6) acute metabolic encephalopathy Status: Resolved (7) Sepsis Code(s): A41.9 - SEPSIS, UNSPECIFIED ORGANISM Status: Resolved (8) TIA (transient ischemic attack) Code(s): G45.9 - TRANSIENT CEREBRAL ISCHEMIC ATTACK, UNSPECIFIED Status: Suspected (9) biliary duct dilatation Status: Ruled out - Plan Plan: Continue ciprofloxacin for E. coli UTI. Patient is awaiting endoscopic studies today Creatinine has improved to 1.11 Reasonable control of blood pressure. Reasonable control of blood sugars.
[2020-05-15] MEDS: HumaLOG 300 UNITS/3 ML VIAL SC PRN (16:55)
[2020-05-15] MEDS: Atorvastatin Calcium 40 MG TAB PO SCH (20:40)
[2020-05-15] MEDS: Sodium Chloride 0.9% 1,000 ML IV SCH (20:42)
[2020-05-15] MEDS ORDERED: Melatonin 3 MG TAB PO SCH (23:59)
[2020-05-16 05:56] LABS: #Basophils 0.1 thou/uL (0.0-0.2); #Eosinphils 0.8 thou/uL (0.0-0.7); #Lymphocytes 3.2 thou/uL (1.20-3.40); #Neutrophils 7.4 thou/uL (1.40-6.50); %Basophils 0.8 % (0.0-1.0); %Eosinophils 6.1 % (0.0-10.0); %Lymphocytes 25.7 % (21.0-51.0); %Monocytes 7.8 % (0.0-10.0); %Neutrophils 59.6 % (42.0-75.0); Hemoglobin 7.2 g/dL (12.0-16.0); Mean Corpuscular HGB CONC 31.2 g/dL (32.0-36.0); Mean Corpuscular Hemoglobin 23.3 pg (27.0-31.0); Mean Corpuscular Volume 74.7 fL (78.0-98.0); Platelet Count 342 thou/uL (130-400); RBC Distribution Width 15.2 % (11.5-14.5); Red Blood Cell (RBC) Count 3.08 mill/uL (4.20-5.40); White Blood Cell (WBC) Count 12.4 thou/uL (4.8-10.8)
[2020-05-16 06:17] LABS: ALT (SGPT) 19 U/L (8-55); AST (SGOT) 57 U/L (5-34); Albumin 3.3 g/dL (3.4-4.8); Alkaline Phosphatase 68 U/L (40-110); Anion Gap 12 mmol/L (10-20); BUN (Urea Nitrogen) 14 mg/dL (9.8-20.1); Bilirubin, Total 0.3 mg/dL (0.2-1.2); Calc. Creatinine Clearance 51 mL/min (70-130); Calcium 8.5 mg/dL (7.8-10.44); Carbon Dioxide 26 mmol/L (23-31); Chloride 104 mmol/L (98-107); Estimated GFR-MDRD 46; Glucose 198 mg/dL (83-110); Potassium 3.8 mmol/L (3.5-5.1); Protein, Total 6.3 g/dL (6.0-8.3); Sodium 138 mmol/L (136-145)
[2020-05-16] MEDS ORDERED: Ferrous Gluconate 324 MG TAB PO SCH (08:00)
[2020-05-16] MEDS ORDERED: Folic Acid 1 MG TAB PO SCH (09:00)
[2020-05-16] MEDS: Aspirin 325 mg Enteric Coated Tablet PO SCH (09:06)
[2020-05-16] MEDS: Enoxaparin Sodium 40 MG/0.4 ML SYRINGE SC SCH (09:06)
[2020-05-16] MEDS: HumaLOG 300 UNITS/3 ML VIAL SC PRN (12:12)
--- NOTE | 2020-05-16 13:02 | PDOC.DS.DS ---
Provider - Provider Date of Admission: 05/12/20 16:22 Date of Discharge: 05/16/20 Admitting Provider: Moi Ya Consultations: Gastroentrology (Dr. Lauren), Neurology (Dr. Rios) Primary Care Physician: NEIDA Benitez Course - Hospital Course Hospital Course: Discharge diagnosis: 1. Acute metabolic encephalopathy 2. Transient ischemic attack 3. Urinary tract infection 4. Folic acid deficiency 5. Iron deficiency 6. Gastritis 7. Esophagitis 8. Diverticulosis 9. COVID-19 PCR test negative 10. Hyponatremia 11. Hyperkalemia Hospital course: Patient is a pleasant 84-year-old lady who was admitted to the hospital on 2019 for acute metabolic encephalopathy. She was found to have urinary tract infection. She was seen by neurology service. 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 There was no evidence of acute infarct. 2D echocardiogram showed left ventricular ejection fraction of 55 to 60%. Carotid Dopplers did not show any evidence of hemodynamically significant stenosis. Transient ischemic attack could not be ruled out since she also presented with slurred speech. CT scan of abdomen and pelvis done at the time of admission showed dilatation of the common duct, which measured 13 mm. She was seen by gastroenterology service. She had abdominal ultrasound, which showed biliary duct enlargement to 7 mm, which may be normal for a patient of her age. She went on to have MRI of the abdomen, which did not show any evidence of abnormal biliary ductal dilatation, cholelithiasis or choledocholithiasis. She went on to have EGD and colonoscopy for iron deficiency anemia and folic acid deficiency. She was found to have focal gastritis in the antrum, with friability, but no erosions or ulcerations. She also had very mild distal esophagitis. Colonoscopy showed left-sided colonic diverticulosis but was otherwise normal to the terminal ileum. He has been started on folic acid and iron. She has also been started on aspirin 325 mg daily and Lipitor 40 mg at bedtime. Urine cultures grew dyscrasia coli that was sensitive to multiple antibiotics but resistant to ampicillin and ampicillin/sulbactam. She is being discharged on ciprofloxacin. Many thanks for allowing me to participate in your patient's care. Please feel free to contact me with any questions or concerns. Resuscitation Status: 05/13/20 23:36 Resuscitation Status Routine Co-Sign Provider: Resuscitation Status: DNAR: NO Resuscitation Discussed with: consent on chart - Labs Lab Results: 05/16/20 05:40 05/16/20 05:40 Abnormal Lab Results - Last 48 hrs 05/15/20 05:15: Creatinine 1.11 H, AST 55 H, Albumin/Globulin Ratio 1.0 L 05/15/20 05:15: WBC 11.8 H, RBC 3.21 L, Hgb 7.3 L, Hct 23.4 L, MCV 73.0 L, MCH 22.7 L, MCHC 31.1 L, RDW 15.0 H, MPV 7.2 L, Neutrophils # 7.2 H, Monocytes # 0.8 H 05/16/20 05:40: Creatinine 1.13 H, AST 57 H, Albumin 3.3 L, Albumin/Globulin Ratio 1.1 L 05/16/20 05:40: WBC 12.4 H, RBC 3.08 L, Hgb 7.2 L, Hct 23.0 L, MCV 74.7 L, MCH 23.3 L, MCHC 31.2 L, RDW 15.2 H, MPV 7.0 L, Neutrophils # 7.4 H, Monocytes # 1.0 H, Eosinophils # 0.8 H Microbiology - Entire Visit 05/12/20 01:28 Venous blood - Left Hand Blood Culture - Preliminary NO GROWTH AT 48 HOURS 05/12/20 01:19 Venous blood - Right Hand Blood Culture - Preliminary NO GROWTH AT 48 HOURS 05/13/20 21:30 Stool Stool Occult Blood (VERONICA) - Final 05/12/20 00:04 Urine Straight Catheter Urine Culture - Final Escherichia coli - Physical Exam Vitals: Vital Signs (12 hours) Temp Pulse Resp BP Pulse Ox 05/16/20 11:51 98.5 F 75 18 139/71 95 05/16/20 07:43 98.2 F 87 16 148/70 H 97 05/16/20 03:58 98.0 F 76 16 112/60 95 Weight Weight 187 lb 9.6 oz Most Recent Monitor Data Heart Rate from ECG 80 NIBP 118/78 NIBP BP-Mean 91 Respiration from ECG 20 SpO2 97 Physical Exam: The patient was seen and examined on the day of discharge. Patient denies chest pain or shortness of breath. Vital signs are stable. S1 and S2 are heard. Lungs are clear to auscultation bilaterally. Problem - Time spent with Patient (mins): 33 Plan - Discharge Medications Prescriptions: Ciprofloxacin [Cipro] 500 mg PO BID #6 tab Ferrous Gluconate [Fergon] 324 mg PO QAM-WM #30 tab Folic Acid [Folvite] 1 mg PO DAILY #30 tab Home Medications: Medication Instructions Recorded Confirmed Type Acetaminophen [Tylenol Extra 2 tab PO PRN PRN 05/12/20 05/12/20 History Strength] Cholecalciferol (Vitamin D3) 1 tab PO DAILY 05/12/20 05/12/20 History [Vitamin D3] Cranberry Fruit [Cranberry] 1 tab PO DAILY 05/12/20 05/12/20 History Diphenoxylate HCl/Atropine 1 tab PO PRN PRN 05/12/20 05/12/20 History [Lomotil] Donepezil HCl [Aricept] 1 tab PO DAILY 05/12/20 05/12/20 History Escitalopram Oxalate [Lexapro] 10 mg PO DAILY 05/12/20 05/12/20 History Hydrocortisone 1% Cream 1 appful TOP BID 05/12/20 05/12/20 History Insulin Glargine,Hum.Rec.Anlog 10 unit SQ QPM 05/12/20 05/12/20 History [Lantus] Insulin Glargine,Hum.Rec.Anlog 25 unit SQ QAM 05/12/20 05/12/20 History [Lantus] Lisinopril 1 tab PO DAILY 05/12/20 05/12/20 History Nystatin [Nystatin Powder] 1 applic TOP BID PRN 05/12/20 05/12/20 History Omeprazole 1 tab PO DAILY 05/12/20 05/12/20 History Ondansetron [Zofran ODT] 1 tab PO Q8H PRN 05/12/20 05/12/20 History Oxybutynin [Ditropan] 1 tab PO BID 05/12/20 05/12/20 History Sertraline HCl [Zoloft] 25 mg PO DAILY 05/12/20 05/12/20 History Terbinafine 1% Cream [LamISIL 1% 1 applic TOP BID 05/12/20 05/12/20 History Cream] Aspirin [Aspirin EC] 325 mg PO DAILY #30 tablet. 05/16/20 Rx Atorvastatin Calcium [Lipitor] 40 mg PO HS #30 tab 05/16/20 Rx Ciprofloxacin [Cipro] 500 mg PO BID #6 tab 05/16/20 Rx Ferrous Gluconate [Fergon] 324 mg PO QAM-WM #30 tab 05/16/20 Rx Folic Acid [Folvite] 1 mg PO DAILY #30 tab 05/16/20 Rx Allergies: Penicillins Allergy (Verified 05/12/20 02:15) - Follow up Plan Referrals: Citlalli Raymundo, [employer] [Primary Care Provider] - Disposition: HOME
[2020-05-16 15:35] VITALS: BP 134/53; TEMP 98.8
[2020-05-16] MEDS ORDERED: Melatonin 3 MG TAB PO SCH (21:00)
== END 2020-05-16 17:08 | DRG 871 ==
LOC: ERS 23:21 → ERHOLD 05-12 01:40 → IMCU/EMU 05-12 07:33 → OBSVTOIN 05-12 16:22 → 2SE 05-13 18:49
PROVIDERS: ADMIT Internal Medicine; ATTEND Internal Medicine
PROC: 0DJ08ZZ Inspection of Upper Intestinal Tract, Via Natural or Artificial Opening Endoscopic (ICD-10-PCS; principal; 2020-05-15)
PROC: 0DJD8ZZ Inspection of Lower Intestinal Tract, Via Natural or Artificial Opening Endoscopic (ICD-10-PCS; 2020-05-15)
DX: A41.51 Sepsis due to Escherichia coli [E. coli] (principal); G93.41 Metabolic encephalopathy; N39.0 Urinary tract infection, site not specified; G45.9 Transient cerebral ischemic attack, unspecified; E87.1 Hypo-osmolality and hyponatremia; Z16.11 Resistance to penicillins; Z16.10 Resistance to unspecified beta lactam antibiotics; Z66 Do not resuscitate; Z20.828 Contact with and (suspected) exposure to other viral communicable diseases; E53.8 Deficiency of other specified B group vitamins; K29.70 Gastritis, unspecified, without bleeding; K20.90 Esophagitis, unspecified without bleeding; K57.30 Diverticulosis of large intestine without perforation or abscess without bleeding; E87.5 Hyperkalemia; D50.9 Iron deficiency anemia, unspecified; I12.9 Hypertensive chronic kidney disease with stage 1 through stage 4 chronic kidney disease, or unspecified chronic kidney disease; E78.5 Hyperlipidemia, unspecified; E11.22 Type 2 diabetes mellitus with diabetic chronic kidney disease; N18.9 Chronic kidney disease, unspecified; N18.30 Chronic kidney disease, stage 3 unspecified; G93.89 Other specified disorders of brain; E66.9 Obesity, unspecified; F32.9 Major depressive disorder, single episode, unspecified; M19.90 Unspecified osteoarthritis, unspecified site; F03.90 Unspecified dementia, unspecified severity, without behavioral disturbance, psychotic disturbance, mood disturbance, and anxiety; Z88.0 Allergy status to penicillin; Z79.4 Long term (current) use of insulin; Z79.899 Other long term (current) drug therapy; Z87.891 Personal history of nicotine dependence; Z68.30 Body mass index [BMI] 30.0-30.9, adult
CPT/HCPCS: 36415; 36416; 51701; 70450; 70551; 74177; 74181; 76705; 80053; 80061; 81003; 81015; 82274; 82607; 82728; 82746; 83540; 83550; 83605; 83690; 84484; 85007; 85025; 85027; 87040; 87077; 87086; 87186; 87635; 93005; 93306; 93880; 95712; 95819; 95957; 96365; 96372; 96375; G0378; J0744; J1650; J1956; J2270; J2405; J2704; Q9967; U0003